=== PATIENT | male | born 1975 | race African-American/Black ===

== ENCOUNTER 2016-12-11 12:54 | Inpatient (IN) | payer OTHER ==
[~2016-12-11] VITALS: Ht 188 cm; Wt 140.2 kg
[~2016-12-11 12:54] MED LIST: AMOXICILLIN500 M1 PO; CEFTIN500 MG PO; CIPRO500 MG PO; COLACE100 MG PO; DOCUSATE SODIU100 MG PO; ENDOCET 5-3251 EACH PO; LOVENOX40 MG/0.4 SC; METFORMIN HCL500 M1 PO; METRONIDAZOLE500 MG PO; OXYCODONE HCL20 M1 PO; PERCOCET 10/1 TABLET PO; PREDNISONE20 MG PO; PROTONIX40 MG PO; Senokot,Sennagen PO; ZOFRAN4 MG PO
[2016-12-11 13:35] LABS: POINT-OF-CARE METER ID UU13113702
[2016-12-11 14:36] LABS: BASOPHIL COUNT 0.1 K/uL (0-0.1); EOSINOPHIL (%) 0 % (0-5); HEMATOCRIT 42.3 % (38.0-50.0); IMMATURE GRANULOCYTE (%) 0.6 % (0.0-0.7); IMMATURE GRANULOCYTE COUNT 0.1 K/uL; INSTRUMENT ABS NEUTROPHIL CT 16.4 K/uL; LYMPHOCYTE COUNT 1.7 K/uL (1.0-2.8); MCH 26.8 PG (29.0-34.0); MCHC 32.4 G/DL (30.0-36.0); MCV 82.6 FL (86-99); MEAN PLAT.VOLUME 10.2 uM^3 (9.0-12.4); MONOCYTE (%) 8.3 % (3-12); MONOCYTE COUNT 1.7 K/uL (0-0.8); NEUTROPHIL (%) 82.3 % (45-76); NEUTROPHIL COUNT 16.4 K/uL (1.8-6.4); PLATELET COUNT 247 K/uL (156-360); RBC DIS.WIDTH-CV 12.9 % (11.8-14.6); RBC DIS.WIDTH-SD 38.8 % (39-53); RED BLOOD COUNT 5.12 M/uL (4.00-5.50); WHITE BLOOD COUNT 19.9 K/uL (4.1-10.2)
[2016-12-11 14:45] LABS: CHLORIDE 106 mEq/L (99-109); POTASSIUM 3.6 mEq/L (3.7-5.4); SODIUM 136 mEq/L (136-147)
[2016-12-11 14:47] LABS: GLUCOSE 172 mg/dL (70-99)
[2016-12-11 14:48] LABS: ANION GAP 10 MEQ/L (2-14)
[2016-12-11 14:51] LABS: GFR ESTIMATE (CALCULATED) > 59 mL/min/
[2016-12-11 14:52] LABS: UREA NITROGEN (BUN) 9 mg/dL (9-23)
[2016-12-11 16:18] LABS: ADD MIUA? YES; BILIRUBIN NEGATIVE; BLOOD NEGATIVE; COLOR AMBER ((YELLOW)); GLUCOSE (STRIP) 150; KETONES 5; LEUKOCYTES MODERATE; PROTEIN (STRIP) 100; SPECIFIC GRAVITY 1.029 (1.000-1.030)
[2016-12-11 16:50] LABS: RED BLOOD CELLS 0-5 /HPF (0-5)
[2016-12-11 16:51] LABS: BACTERIA 4+ /HPF; EPITHELIAL CELLS NONE SEEN /HPF; MUCUS NONE SEEN /LPF; NITRITE POSITIVE; UCUL ADDED? YES; WHITE BLOOD CELLS TNTC /HPF (0-5)
[2016-12-11] MEDS ORDERED: ANDROGEL75 GM TD (17:05)
[2016-12-11] MEDS ORDERED: CYANOCOBALAM1000 MCG PO (17:06)
[2016-12-11 20:25] VITALS: BP 129/80
[2016-12-11 22:09] LABS: POINT-OF-CARE METER ID UU14174225
[2016-12-11 23:27] VITALS: BP 121/67
[2016-12-12 04:06] VITALS: BP 120/80
[2016-12-12 06:40] LABS: MCH 27.1 PG (29.0-34.0); MCHC 31.9 G/DL (30.0-36.0); MCV 84.9 FL (86-99); MEAN PLAT.VOLUME 10.3 uM^3 (9.0-12.4); PLATELET COUNT 192 K/uL (156-360); RBC DIS.WIDTH-CV 13.2 % (11.8-14.6); RBC DIS.WIDTH-SD 41.2 % (39-53); RED BLOOD COUNT 4.36 M/uL (4.00-5.50); WHITE BLOOD COUNT 18.9 K/uL (4.1-10.2)
[2016-12-12 07:33] LABS: ANION GAP 8 MEQ/L (2-14); CHLORIDE 108 MEQ/L (99-109); GFR ESTIMATE (CALCULATED) > 59 mL/min/; GLUCOSE 194 mg/dL (70-99); POTASSIUM 3.7 MEQ/L (3.7-5.4); SAMPLE HEMOLYSIS CHECK 0; SAMPLE ICTERIC CHECK 0; SAMPLE LIPEMIA CHECK 0; SODIUM 139 MEQ/L (136-147); UREA NITROGEN (BUN) 6 mg/dL (9-23)
[2016-12-12 08:20] VITALS: BP 140/88
[2016-12-12 11:46] VITALS: BP 123/76
[2016-12-12 16:12] VITALS: BP 131/77
[2016-12-12 19:38] VITALS: BP 135/83
[2016-12-12 21:29] LABS: POINT-OF-CARE METER ID UU14188625
[2016-12-13] VITALS (7 sets, daily range): BP systolic 116–164; BP diastolic 64–94
[2016-12-13 09:03] LABS: HEMATOCRIT 37.2 % (38.0-50.0); MCH 26.6 PG (29.0-34.0); MCHC 31.7 G/DL (30.0-36.0); MEAN PLAT.VOLUME 10.5 uM^3 (9.0-12.4); PLATELET COUNT 196 K/uL (156-360); RBC DIS.WIDTH-CV 12.9 % (11.8-14.6); RBC DIS.WIDTH-SD 39.7 % (39-53); RED BLOOD COUNT 4.43 M/uL (4.00-5.50); WHITE BLOOD COUNT 13.3 K/uL (4.1-10.2)
[2016-12-13 09:15] LABS: ANION GAP 9 MEQ/L (2-14); CHLORIDE 102 MEQ/L (99-109); GFR ESTIMATE (CALCULATED) > 59 mL/min/; GLUCOSE 172 mg/dL (70-99); POTASSIUM 3.7 MEQ/L (3.7-5.4); SAMPLE HEMOLYSIS CHECK 0; SAMPLE ICTERIC CHECK 0; SAMPLE LIPEMIA CHECK 0; SODIUM 134 MEQ/L (136-147); UREA NITROGEN (BUN) 6 mg/dL (9-23)
[2016-12-14 03:43] VITALS: BP 141/89
[2016-12-14 08:16] LABS: POINT-OF-CARE METER ID UU14174225
[2016-12-14 08:23] VITALS: BP 147/96
[2016-12-14 13:07] VITALS: BP 165/91
[2016-12-14 16:06] VITALS: BP 156/84
[2016-12-14 19:58] VITALS: BP 156/94
[2016-12-14 21:41] LABS: POINT-OF-CARE METER ID UU14188625
[2016-12-15] VITALS: BP 151/88
[2016-12-15 04:00] VITALS: BP 140/77
[2016-12-15 07:55] VITALS: BP 154/96
[2016-12-15 12:12] LABS: POINT-OF-CARE METER ID UU14174225
[2016-12-15 12:17] VITALS: BP 138/92
[2016-12-15] MEDS ORDERED: TAMSULOSIN HCL0.4 MG PO (13:12)
[2016-12-15 16:00] VITALS: BP 153/86
== END 2016-12-15 18:45 | disposition home health service (06) | DRG 872 ==
LOC: EME 12:54 → EDOF 18:14 → 5SOUTH 18:14
PROVIDERS: Emergency Medicine; Hospitalist; Internal Medicine
DX: A41.51 Sepsis due to Escherichia coli [E. coli] (principal); E11.42 Type 2 diabetes mellitus with diabetic polyneuropathy; G82.20 Paraplegia, unspecified; E11.65 Type 2 diabetes mellitus with hyperglycemia; N41.0 Acute prostatitis; K59.09 Other constipation; E66.01 Morbid (severe) obesity due to excess calories; N31.9 Neuromuscular dysfunction of bladder, unspecified; G89.4 Chronic pain syndrome; N39.0 Urinary tract infection, site not specified; R16.0 Hepatomegaly, not elsewhere classified; M54.9 Dorsalgia, unspecified; R97.20 Elevated prostate specific antigen [PSA]; K76.0 Fatty (change of) liver, not elsewhere classified; K80.20 Calculus of gallbladder without cholecystitis without obstruction; N12 Tubulo-interstitial nephritis, not specified as acute or chronic; B96.20 Unspecified Escherichia coli [E. coli] as the cause of diseases classified elsewhere; Z68.39 Body mass index [BMI] 39.0-39.9, adult; Z99.3 Dependence on wheelchair; Z79.4 Long term (current) use of insulin
CPT/HCPCS: 74176; 76937; 80048; 81003; 82948; 83605; 85025; 85027; 87040; 87077; 87086; 87086 GA; 87186; 99281; 99285; C1894; J0696; J0744; J1644; J1815; J1885; J2270; J2405; J7030; J7050